=== PATIENT | female | born 2000 | race African-American/Black ===

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

== ENCOUNTER 2019-10-25 03:07 | Inpatient (IN) ==
[2019-10-25] MEDS ORDERED: ONDANSETRON 4 MG/2 ML VIAL IV PRN (03:40)
[2019-10-25] MEDS ORDERED: LACTATED RINGERS 500 ML IV PRN (03:40)
[2019-10-25] MEDS ORDERED: LACTATED RINGERS 1,000 ML IV ONE (03:40)
[2019-10-25 04:14] LABS: Basophils # 0.1 10*3/uL (0.0-0.2); Basophils % 0.4 % (0.0-0.8); Eosinophils # 0.1 10*3/uL (0.0-0.87); Eosinophils % 0.8 % (0.00-10.9); Hematocrit 28.9 VOL% (35.7-47.0); Hemoglobin 8.5 GM/DL (12.0-16.0); Immature Granulocytes Absolute 0.52 #; Lymphocytes # 2.9 10*3/uL (1.4-4.0); Mean Corpuscular HGB Conc 29.4 GM/DL (32-36); Mean Platelet Volume 10.8 FL (9.6-12.0); Monocytes % 10.1 % (1.7-12.7); NRBC # 0.03 10*3/uL; Neutrophils % 62.7 % (38.7-73.9); Platelet Count 302 T/CUMM (130-400); Red Blood Count 3.96 MC/CUMM (3.8-5.5); Red Cell Distribution Width 17.6 % (9.3-17.3)
[2019-10-25] MEDS ORDERED: AMPICILLIN INJ 2,000 MG in SODIUM CHLORIDE 0.9% 100 ML IV ONE (04:27)
[2019-10-25 04:43] LABS: Alanine Aminotransferase 13 U/L (13-56); Albumin 2.8 G/DL (3.4-5.0); Alkaline Phosphatase 114 U/L (45-117); Aspartate Amino Transferase 15 U/L (0-37); Bilirubin,Total < 0.39 MG/DL (0.2-1.0); Blood Urea Nitrogen 8 MG/DL (7-18); Calcium 8.1 MG/DL (8.5-10.1); Estimated Glom Filtration Rate 139 ML/MIN; Glucose 85 MG/DL (74-106); Total Protein 7.1 G/DL (6.4-8.3)
[2019-10-25 04:51] LABS: Band Neutrophils 3 % (0-10); Lymphocytes 19 % (20-55); Platelet Estimate Adequate; Segmented Neutrophils 72 % (50-85); Total Cells Counted 100
[2019-10-25 04:52] LABS: Hypochromasia 1+; Ovalocytes Slight
[2019-10-25] MEDS: BETAMETH SODIUM PHOS/ACETATE 30 MG/5 ML VIAL IM SCH ×2 (05:05→17:27)
[2019-10-25] MEDS: LACTATED RINGERS 1,000 ML IV SCH (05:06)
[2019-10-25 05:44] LABS: HIV Antigen/Antibody Result Nonreactive (Nonreactive)
[2019-10-25] MEDS ORDERED: MAGNESIUM SULF RIDER 100 ML IV ONE (06:07)
[2019-10-25 06:08] LABS: Hepatitis B Surface Ag Quant < 0.10 Index; Hepatitis B Surface Ag Result Negative (Negative); Rubella Antibody IgG* 86.2 IU/ML
[2019-10-25] MEDS: MAGNESIUM SULF DRIP 40 GM/1,000 ML ML IV SCH (06:40)
[2019-10-25 07:23] LABS: Apearance,Urine CLEAR (Clear); Bilirubin,Urine Negative (Negative); Blood, Urine Negative (Negative); Glucose,Urine (UA) Negative (Negative); Ketones,Urine Negative (Negative); Mucus,Urine Occasional /LPF (Occasional); Nitrite,Urine Negative (Negative); Protein,Urine Negative; RBC,Urine <1 /HPF (0-4); Squamous Epithelial Cell,Urine Occasional /HPF (0-10); Urine Color Yellow (Yellow); Urine Specific Gravity 1.015 (1.001-1.035); Urine Urobilinogen < 2.0 EU/DL (0.2-1.0); WBC,Urine 7 /HPF (0-6)
[2019-10-25 08:52] LABS: Barbiturates Screen,Urine Negative (Negative); Benzodiazepines Screen,Urine Negative (Negative); Cannabinoid Screen,Urine Negative (Negative); Opiate Screen,Urine Negative (Negative); Phencyclidine Screen,Urine Negative (Negative)
[2019-10-25] MEDS: AMPICILLIN INJ 1,000 MG in SODIUM CHLORIDE 0.9% 100 ML IV SCH ×3 (10:02→20:23)
[2019-10-26 08:52] LABS: Basophils % 0.2 % (0.0-0.8); Hematocrit 25.5 VOL% (35.7-47.0); Hemoglobin 7.7 GM/DL (12.0-16.0); Immature Granulocytes % 4.1 %; Immature Granulocytes Absolute 0.73 #; Lymphocytes # 1.4 10*3/uL (1.4-4.0); Lymphocytes % 7.6 % (21.3-54.2); Mean Corpuscular HGB Conc 30.2 GM/DL (32-36); Mean Corpuscular Volume 71.8 FL (87-102); Mean Platelet Volume 10.3 FL (9.6-12.0); Monocytes % 4.5 % (1.7-12.7); Neutrophils % 83.6 % (38.7-73.9); Platelet Count 280 T/CUMM (130-400); Red Blood Count 3.55 MC/CUMM (3.8-5.5); Red Cell Distribution Width 17.9 % (9.3-17.3); White Blood Count 17.9 T/CUMM (4-12)
[2019-10-26 09:35] LABS: Anisocytosis 2+; Band Neutrophils 11 % (0-10); Lymphocytes 11 % (20-55); Metamyelocytes 1 %; Platelet Estimate Normal; Poikilocytosis Slight; Segmented Neutrophils 74 % (50-85); Total Cells Counted 100
[2019-10-26] MEDS: ACETAMINOPHEN 325 MG TABLET PO PRN (16:08)
[2019-10-26] MEDS: ceFAZolin 1,000 MG in SYRINGE 1 EACH IV SCH (20:24)
[2019-10-26] MEDS: LACTATED RINGERS 1,000 ML IV SCH (20:24)
[2019-10-27] MEDS ORDERED: OXYTOCIN/LR 20 UNIT/1,000 ML BAG IV SCH ×2 (00:30→05:00)
[2019-10-27] MEDS: ACETAMINOPHEN 325 MG TABLET PO PRN (01:18)
[2019-10-27] MEDS: ceFAZolin 1,000 MG in SYRINGE 1 EACH IV SCH ×2 (04:18→10:36)
[2019-10-27] MEDS ORDERED: MEPERIDINE 25 MG/1 ML VIAL IV PRN (07:32)
[2019-10-27] MEDS ORDERED: FAMOTIDINE 20 MG/2 ML VIAL IV ONE (07:33)
[2019-10-27] MEDS ORDERED: CITRIC ACID/SODIUM CITRATE 30 ML UDCUP PO ONE (07:33)
[2019-10-27] MEDS ORDERED: LACTATED RINGERS 1,000 ML IV ONE (07:33)
[2019-10-27] MEDS ORDERED: ePHEDrine 50 MG/ML AMP IV PRN (07:33)
[2019-10-27] MEDS ORDERED: diphenhydrAMINE 50 MG/1 ML VIAL IV PRN ×2 (07:34)
[2019-10-27] MEDS ORDERED: hydrOXYzine HCL 25 MG/1 ML VIAL IM PRN (07:34)
[2019-10-27] MEDS ORDERED: NALOXONE 0.4 MG/ML VIAL IV PRN (07:34)
[2019-10-27] MEDS ORDERED: PROMETHAZINE 25 MG/1 ML VIAL IM ONE (07:34)
[2019-10-27] MEDS ORDERED: fentaNYL 2 MCG/ROPIV 0.2% EPID 100 ML EPIDURAL SCH (08:00)
[2019-10-27 09:22] LABS: Apearance,Urine CLEAR (Clear); Bilirubin,Urine Negative (Negative); Blood, Urine Negative (Negative); Glucose,Urine (UA) Negative (Negative); Ketones,Urine Negative (Negative); Mucus,Urine Occasional /LPF (Occasional); Nitrite,Urine Negative (Negative); Protein,Urine Negative; RBC,Urine 1 /HPF (0-4); Squamous Epithelial Cell,Urine Occasional /HPF (0-10); Urine Color Colorless (Yellow); Urine Specific Gravity 1.008 (1.001-1.035); Urine Urobilinogen < 2.0 EU/DL (0.2-1.0); WBC,Urine 6 /HPF (0-6)
[2019-10-27] MEDS ORDERED: miSOPROStoL 200 MCG TABLET ONE (11:23)
[2019-10-27] MEDS ORDERED: TRANEXAMIC ACID 1,000 MG/10 ML VIAL ONE (11:23)
[2019-10-27] MEDS ORDERED: METHYLERGONOVINE 0.2 MG/1 ML AMP ONE (11:24)
[2019-10-27] MEDS ORDERED: CARBOPROST TROMETHAMINE 250 MCG/ML AMP IM ONE (11:24)
[2019-10-27] MEDS ORDERED: OXYTOCIN/LR 20 UNIT/1,000 ML BAG IV ONE ×2 (11:24→11:42)
[2019-10-27] MEDS ORDERED: WITCH HAZEL PADS 100/JAR TOP PRN (11:42)
[2019-10-27] MEDS ORDERED: LANOLIN 50% CREAM 0.3 OZ TUBE TOP PRN (11:42)
[2019-10-27] MEDS ORDERED: RHO(D) IMMUNE GLOBULIN 300 MCG SYRINGE IM ONE (11:42)
[2019-10-27] MEDS ORDERED: IBUPROFEN 800 MG TABLET PO PRN (11:42)
[2019-10-27] MEDS ORDERED: BISACODYL 10 MG SUPP RECTAL PRN (11:42)
[2019-10-27] MEDS ORDERED: ONDANSETRON 4 MG/2 ML VIAL IV PRN (11:42)
[2019-10-27] MEDS ORDERED: HYDROCORTISONE 2.5% RECTAL CREAM 30 GM TUBE TOP PRN (11:42)
[2019-10-27] MEDS ORDERED: DIPH/TET/ACEL PERT BOOSTER VACCINE 0.5 ML VIAL IM ONE (11:42)
[2019-10-27] MEDS ORDERED: oxyCODONE/ACETAMINOPHEN 5-325 MG TABLET PO PRN ×2 (11:42)
[2019-10-27] MEDS ORDERED: ACETAMINOPHEN 325 MG TABLET PO PRN (11:42)
[2019-10-27] MEDS ORDERED: BENZOCAINE 20%/MENTHOL 0.5% SPRAY 56 GM CAN TOP PRN (11:42)
[2019-10-27] MEDS ORDERED: MEASLES/MUMPS/RUBELLA VACCINE 0.5 ML VIAL SUBCUT ONE (11:42)
[2019-10-27 12:17] LABS: Cord Venous Blood HCO3 21.2 MMOL/L; Cord Venous Blood PO2 25.8
[2019-10-27 15:46] LABS: Basophils % 0.2 % (0.0-0.8); Hematocrit 28.4 VOL% (35.7-47.0); Immature Granulocytes % 2.1 %; Immature Granulocytes Absolute 0.46 #; Lymphocytes % 9.4 % (21.3-54.2); Mean Corpuscular HGB Conc 28.2 GM/DL (32-36); Mean Corpuscular Volume 75.9 FL (87-102); Mean Platelet Volume 10.5 FL (9.6-12.0); Monocytes % 9.5 % (1.7-12.7); NRBC # 0.03 10*3/uL; Neutrophils % 78.8 % (38.7-73.9); Platelet Count 257 T/CUMM (130-400); Red Blood Count 3.74 MC/CUMM (3.8-5.5); Red Cell Distribution Width 18.3 % (9.3-17.3); White Blood Count 21.6 T/CUMM (4-12)
[2019-10-27 15:51] LABS: Lymphocytes 11 % (20-55); Segmented Neutrophils 86 % (50-85); Total Cells Counted 100
[2019-10-27 15:52] LABS: Anisocytosis Slight; Hypochromasia 1+; Microcytosis 1+
[2019-10-27 15:53] LABS: Platelet Estimate Adequate
[2019-10-27] MEDS: FERROUS SULFATE 325 MG TABLET PO SCH (20:54)
[2019-10-27] MEDS: DOCUSATE SODIUM 100 MG CAPSULE PO SCH (20:54)
[2019-10-28] MEDS: LACTATED RINGERS 1,000 ML IV SCH ×2 (07:38→07:39)
[2019-10-28] MEDS: AMPICILLIN INJ 1,000 MG in SODIUM CHLORIDE 0.9% 100 ML IV SCH (07:40)
[2019-10-28] MEDS: BETAMETH SODIUM PHOS/ACETATE 30 MG/5 ML VIAL IM SCH ×2 (07:40→07:41)
[2019-10-28] MEDS: MAGNESIUM SULF DRIP 40 GM/1,000 ML ML IV SCH ×2 (07:40→07:41)
[2019-10-28] MEDS: DOCUSATE SODIUM 100 MG CAPSULE PO SCH (09:50)
[2019-10-28] MEDS: FERROUS SULFATE 325 MG TABLET PO SCH (09:50)
[2019-10-28 10:48] LABS: Basophils % 0.1 % (0.0-0.8); Eosinophils % 0.1 % (0.00-10.9); Hemoglobin 7.7 GM/DL (12.0-16.0); Immature Granulocytes % 3.5 %; Immature Granulocytes Absolute 0.61 #; Lymphocytes # 2.6 10*3/uL (1.4-4.0); Lymphocytes % 14.9 % (21.3-54.2); Mean Corpuscular HGB Conc 29.6 GM/DL (32-36); Mean Corpuscular Volume 73.4 FL (87-102); Mean Platelet Volume 10.8 FL (9.6-12.0); Monocytes % 8.4 % (1.7-12.7); NRBC # 0.07 10*3/uL; Platelet Count 273 T/CUMM (130-400); Red Blood Count 3.54 MC/CUMM (3.8-5.5); Red Cell Distribution Width 17.9 % (9.3-17.3); White Blood Count 17.3 T/CUMM (4-12)
[2019-10-28 11:43] LABS: Band Neutrophils 3 % (0-10); Lymphocytes 18 % (20-55); Segmented Neutrophils 70 % (50-85); Total Cells Counted 100
[2019-10-28 11:44] LABS: Anisocytosis 2+; Platelet Estimate Normal; Polychromasia Slight
[2019-10-28 13:41] VITALS: BP 103/70
== END 2019-10-28 14:40 | disposition home or self-care (01) | DRG 805 ==
LOC: N.LDOUT 03:07 → N.LD 03:11 → N.OB 10-26 10:33 → N.LD 10-26 17:28 → N.OB 10-27 14:08 → N.2E 10-28 02:20
PROVIDERS: ADMIT Obstetrics & Gynecology; ATTEND Obstetrics & Gynecology